=== PATIENT | male | born 1955 | race Caucasian/White ===

== ENCOUNTER → 2020-10-08 | Outpatient (CLI) | payer MEDICARE, OTHER ==
[~2020-10-08] MED LIST: ASPIR 8181 MG PO; ATORVASTATIN CA40 MG PO; BACTROBAN OINT22 GM EXT; BENADRYL25 MG PO; CLEOCIN HCL300 MG PO; COZAAR100 MG PO; CYCLOBENZAPRINE10 MG PO; DEXILANT60 MG PO; FLOMAX 0.4 MG0.4 MG PO; GLUCOPHAGE1000 MG PO; GLUCOTROL5 MG PO; ISOSORBIDE DINI30 MG PO; LASIX20 MG PO; NORCO 5-325 TA1 EACH PO; PROSCAR 5 MG TAB5 MG PO; TOPROL XL25 MG PO; TRAZODONE HCL300 MG PO; WELLBUTRIN SR150 M1 PO
== END ==
LOC: CT 09-25 08:00
DX: I71.4 Abdominal aortic aneurysm, without rupture (principal)
CPT/HCPCS: 36415; 82565; Q9967

== ENCOUNTER → 2020-11-08 | Outpatient (CLI) | payer MEDICARE, OTHER ==
[~2020-11-08] VITALS: Ht 170.2 cm; Wt 137.0 kg
== END ==
LOC: OPSV 11-05 09:00
DX: M05.79 Rheumatoid arthritis with rheumatoid factor of multiple sites without organ or systems involvement (principal)
CPT/HCPCS: 96365; 96375; J1602; J2920

== ENCOUNTER → 2020-12-06 | Outpatient (CLI) | payer MEDICARE, OTHER ==
[~2020-12-06] VITALS: Ht 170.2 cm; Wt 137.0 kg
== END ==
LOC: OPSV 09:50
DX: M05.79 Rheumatoid arthritis with rheumatoid factor of multiple sites without organ or systems involvement (principal)
CPT/HCPCS: 96365; 96375; J1602; J2920

== ENCOUNTER → 2021-01-31 | Outpatient (CLI) | payer MEDICARE, OTHER ==
[~2021-01-31] VITALS: Ht 170.2 cm; Wt 137.0 kg
[~2021-01-31] MED LIST changes: +MEDROL4 MG PO; +VISTARIL50 MG PO
[2021-01-31 10:57] LABS: HEMOGLOBIN 13.2 gm/dl (14.0-17.5); RED BLOOD COUNT 4.46 M/UL (4.20-5.50); WHITE BLOOD COUNT 7.6 K/UL (4.5-11.0)
== END ==
LOC: OPSV 10:00
PROVIDERS: Internal Medicine
DX: M05.79 Rheumatoid arthritis with rheumatoid factor of multiple sites without organ or systems involvement (principal); Z79.899 Other long term (current) drug therapy
CPT/HCPCS: 36415; 80053; 85025; 85652; 86140; 96365; 96375; J1602; J2920

== ENCOUNTER → 2021-02-04 | Outpatient (CLI) | payer MEDICARE, OTHER | LOC: LAB 09:58 | DX: N40.0 Benign prostatic hyperplasia without lower urinary tract symptoms (principal) | CPT/HCPCS: 36415; 84153 ==

== ENCOUNTER → 2021-03-19 | Outpatient (CLI) | payer MEDICARE ==
[2021-03-19 16:49] LABS: HEMOGLOBIN 14.9 gm/dl (14.0-17.5); RED BLOOD COUNT 4.86 M/UL (4.20-5.50); WHITE BLOOD COUNT 17.3 K/UL (4.5-11.0)
== END ==
LOC: LAB 16:19
PROVIDERS: Nurse Practitioner Family
DX: Z51.81 Encounter for therapeutic drug level monitoring (principal); Z79.899 Other long term (current) drug therapy
CPT/HCPCS: 36415; 80053; 85025

== ENCOUNTER 2021-03-21 21:15 | Emergency (ER) | payer MEDICARE ==
[~2021-03-21 21:15] MED LIST changes: -MEDROL4 MG PO; -VISTARIL50 MG PO
[2021-03-21 23:34] LABS: HEMOGLOBIN 14.7 gm/dl (14.0-17.5); RED BLOOD COUNT 4.77 M/UL (4.20-5.50); WHITE BLOOD COUNT 20.4 K/UL (4.5-11.0)
[2021-03-22] MEDS ORDERED: MEDROL4 MG PO (00:09)
[2021-03-22] MEDS ORDERED: VISTARIL50 MG PO (00:09)
== END 2021-03-22 00:30 | disposition home or self-care (01) ==
LOC: ER1 21:15
PROVIDERS: Preventive Medicine Occupational Medicine
DX: T78.40XA Allergy, unspecified, initial encounter (principal); Z20.822 Contact with and (suspected) exposure to COVID-19; M06.9 Rheumatoid arthritis, unspecified
CPT/HCPCS: 70486; 70490; 71045; 80053; 85025; 85652; 86140; 96374; 96375; 99284; J1200; J2930; J7030; U0002

== ENCOUNTER 2021-04-23 20:54 | Inpatient (IN) | payer MEDICARE ==
[~2021-04-23] VITALS: Ht 170.2 cm; Wt 142.0 kg
[~2021-04-23 20:54] MED LIST changes: +MEDROL4 MG PO; +TRAZODONE HCL150 MG PO; -TRAZODONE HCL300 MG PO; +VISTARIL50 MG PO
[2021-04-23 21:32] LABS: HEMOGLOBIN 12.5 gm/dl (14.0-17.5); RED BLOOD COUNT 4.11 M/UL (4.20-5.50); WHITE BLOOD COUNT 26.8 K/UL (4.5-11.0)
[2021-04-24 03:31] LABS: HEMOGLOBIN 13.4 gm/dl (14.0-17.5)
[2021-04-24 05:16] LABS: RED BLOOD COUNT 4.58 M/UL (4.20-5.50); WHITE BLOOD COUNT 52.8 K/UL (4.5-11.0)
[2021-04-24 09:48] LABS: HEMOGLOBIN 12.7 gm/dl (14.0-17.5); RED BLOOD COUNT 4.29 M/UL (4.20-5.50)
[2021-04-24 10:12] LABS: WHITE BLOOD COUNT 26.5 K/UL (4.5-11.0)
[2021-04-24] MEDS ORDERED: ROPINIROLE HCL3 MG PO (12:35)
[2021-04-24] MEDS ORDERED: HYDROXYCHLOROQ200 MG PO ×2 (12:36→12:37)
[2021-04-24] MEDS ORDERED: QUETIAPINE FUMA25 MG PO (12:36)
[2021-04-24] MEDS ORDERED: SIMPONI AR50 MG/4 ML IV (12:37)
[2021-04-24] MEDS ORDERED: TRAMADOL HCL50 MG PO (12:38)
[2021-04-24] MEDS ORDERED: DIFLUCAN 100 M100 MG PO (12:39)
[2021-04-24 16:03] LABS: HEMOGLOBIN 12.4 gm/dl (14.0-17.5); RED BLOOD COUNT 4.19 M/UL (4.20-5.50)
[2021-04-24 21:02] LABS: HEMOGLOBIN 11.1 gm/dl (14.0-17.5); WHITE BLOOD COUNT 13.4 K/UL (4.5-11.0)
[2021-04-24 21:06] LABS: RED BLOOD COUNT 3.75 M/UL (4.20-5.50)
[2021-04-25 05:24] LABS: HEMOGLOBIN 11.5 gm/dl (14.0-17.5); RED BLOOD COUNT 3.88 M/UL (4.20-5.50); WHITE BLOOD COUNT 16.3 K/UL (4.5-11.0)
[2021-04-26 06:19] LABS: HEMOGLOBIN 11.3 gm/dl (14.0-17.5); RED BLOOD COUNT 3.76 M/UL (4.20-5.50)
[2021-04-26 06:23] LABS: WHITE BLOOD COUNT 20.7 K/UL (4.5-11.0)
[2021-04-27 03:57] LABS: HEMOGLOBIN 10.8 gm/dl (14.0-17.5); RED BLOOD COUNT 3.57 M/UL (4.20-5.50); WHITE BLOOD COUNT 16.2 K/UL (4.5-11.0)
[2021-04-28 05:35] LABS: HEMOGLOBIN 9.6 gm/dl (14.0-17.5)
[2021-04-28 05:37] LABS: RED BLOOD COUNT 3.21 M/UL (4.20-5.50); WHITE BLOOD COUNT 9.2 K/UL (4.5-11.0)
[2021-04-29 05:09] LABS: HEMOGLOBIN 9.4 gm/dl (14.0-17.5); RED BLOOD COUNT 3.11 M/UL (4.20-5.50); WHITE BLOOD COUNT 8.1 K/UL (4.5-11.0)
== END 2021-04-29 17:30 | disposition expired | DRG 207 ==
LOC: ER1 20:54 → CDU 22:49 → CCU 22:49
PROVIDERS: Emergency Medicine; Internal Medicine; Internal Medicine Pulmonary Disease; ADMIT Internal Medicine
PROC: 5A12012 Performance of Cardiac Output, Single, Manual (ICD-10-PCS; principal; 2021-04-23)
PROC: 5A1955Z Respiratory Ventilation, Greater than 96 Consecutive Hours (ICD-10-PCS; 2021-04-23)
PROC: 0BH17EZ Insertion of Endotracheal Airway into Trachea, Via Natural or Artificial Opening (ICD-10-PCS; 2021-04-23)
PROC: 3E033XZ Introduction of Vasopressor into Peripheral Vein, Percutaneous Approach (ICD-10-PCS; 2021-04-23)
PROC: 6A4Z0ZZ Hypothermia, Single (ICD-10-PCS; 2021-04-23)
PROC: B24BZZZ Ultrasonography of Heart with Aorta (ICD-10-PCS; 2021-04-24)
PROC: 04HY32Z Insertion of Monitoring Device into Lower Artery, Percutaneous Approach (ICD-10-PCS; 2021-04-24)
PROC: B44FZZZ Ultrasonography of Right Lower Extremity Arteries (ICD-10-PCS; 2021-04-24)
PROC: 02HV33Z Insertion of Infusion Device into Superior Vena Cava, Percutaneous Approach (ICD-10-PCS; 2021-04-24)
PROC: B548ZZA Ultrasonography of Superior Vena Cava, Guidance (ICD-10-PCS; 2021-04-24)
PROC: 4A00X4Z Measurement of Central Nervous Electrical Activity, External Approach (ICD-10-PCS; 2021-04-25)
DX: J96.01 Acute respiratory failure with hypoxia (principal); J69.0 Pneumonitis due to inhalation of food and vomit; Z20.822 Contact with and (suspected) exposure to COVID-19; K72.00 Acute and subacute hepatic failure without coma; I60.9 Nontraumatic subarachnoid hemorrhage, unspecified; N17.0 Acute kidney failure with tubular necrosis; I46.8 Cardiac arrest due to other underlying condition; R57.0 Cardiogenic shock; E66.2 Morbid (severe) obesity with alveolar hypoventilation; G93.1 Anoxic brain damage, not elsewhere classified; E87.0 Hyperosmolality and hypernatremia; E87.2 Acidosis; I50.22 Chronic systolic (congestive) heart failure; Z68.42 Body mass index [BMI] 45.0-49.9, adult; D69.6 Thrombocytopenia, unspecified; I71.4 Abdominal aortic aneurysm, without rupture; N18.30 Chronic kidney disease, stage 3 unspecified; D63.1 Anemia in chronic kidney disease; E11.22 Type 2 diabetes mellitus with diabetic chronic kidney disease; K21.9 Gastro-esophageal reflux disease without esophagitis; J44.9 Chronic obstructive pulmonary disease, unspecified; F32.A Depression, unspecified; E87.5 Hyperkalemia; F17.290 Nicotine dependence, other tobacco product, uncomplicated; I45.10 Unspecified right bundle-branch block; I35.1 Nonrheumatic aortic (valve) insufficiency; F41.9 Anxiety disorder, unspecified; F17.210 Nicotine dependence, cigarettes, uncomplicated; N40.0 Benign prostatic hyperplasia without lower urinary tract symptoms; M06.9 Rheumatoid arthritis, unspecified; I25.10 Atherosclerotic heart disease of native coronary artery without angina pectoris; I11.0 Hypertensive heart disease with heart failure; E11.65 Type 2 diabetes mellitus with hyperglycemia; T78.3XXA Angioneurotic edema, initial encounter; Z95.5 Presence of coronary angioplasty implant and graft; Z79.4 Long term (current) use of insulin
CPT/HCPCS: ECHO; 31500; 36415; 36600; 43752; 51702; 70450; 71045; 78610; 80048; 80053; 80307; 81001; 82140; 82550; 82553; 82803; 82962; 83605; 83690; 83735; 83874; 83880; 84100; 84484; 85007; 85025; 85027; 85384; 85610; 85730; 87040; 92950; 93005; 93306; 94002; 94003; 94760; 95824; 96365; 96366; 96368; 99285; A9521; C9113; G0480; J0171; J0461; J1644; J2250; J2370; J2543; J2704; J2930; J3370; J3475; J3480; J7030; J7040; J7050; J7060; J7070; Q9967; U0002